=== PATIENT | female | born 1960 | race Caucasian/White ===

== ENCOUNTER → 2017-02-17 | Outpatient (CLI) | payer BC, OTHER ==
[~2017-02-17] MED LIST: OMNIPAQUE 350 MG/ML, 100ML BOTTLE ONE
== END ==
LOC: CFH 10:58
PROVIDERS: ATTEND Internal Medicine Hematology & Oncology
DX: I31.3 Pericardial effusion (noninflammatory) (principal); K76.89 Other specified diseases of liver; I89.8 Other specified noninfective disorders of lymphatic vessels and lymph nodes; D69.6 Thrombocytopenia, unspecified
CPT/HCPCS: 71260; 74177; Q9967

== ENCOUNTER → 2017-02-25 | Outpatient (CLI) | payer BC, OTHER | END | disposition home or self-care (01) | LOC: CFH 07:05 | DX: Z12.31 Encounter for screening mammogram for malignant neoplasm of breast (principal) | CPT/HCPCS: G0202 ==